=== PATIENT | female | born 1990 | race Caucasian/White ===

== ENCOUNTER 2016-07-31 04:48 | Inpatient (IN) | payer OTHER ==
[~2016-07-31] VITALS: Ht 160 cm
[~2016-07-31 04:48] MED LIST: AMBIEN5 MG PO; BACITRACIN500 U/G1 T; BUSPAR5 MG PO; DILAUDID4 MG PO; ELAVIL75 MG PO; ENOXAPARIN40 MG/0.2 SQ; HYDROMORPHONE4 MG PO; IMITREX ST6 MG/0.52 SC; IRON90 MG PO; KLONOPIN0.5 MG PO; LIDOCREAM5 GM T; PREDNISONE10 MG PO; PROTONIX20 MG PO; Phenergan25 MG PO; REGLAN; SENNA8.6 MG PO; SENNO8.6 MG PO; TPN ELECTROLYT100 ML IV; TRANSDERM0.33 MG/24 TD; VITAMIN B-650 M1 PO; VITAMIN D50000 I3 PO; XARELTO10 MG PO; [UNRECOGNIZED DRUG - CODE] PO
[2016-07-31 04:57] VITALS: BP 136/80
[2016-07-31 05:52] LABS: BASO % 0.6 % (0.0-1.0); EOS # 0.1 10*3/uL (0.0-0.4); HEMATOCRIT 25.2 % (37.0-47.0); HEMOGLOBIN 7.3 g/dl (12.0-16.0); LYMPH % 32.8 % (27.0-41.0); MEAN CELL VOLUME 70.4 fl (81.0-99.0); MEAN CORPUSCULAR HGB 20.4 pg (27.0-31.0); MEAN PLATELET VOLUME 9.6 fl (9.6-12.3); MONO # 0.8 10*3/uL (0.1-1.0); MONO % 13.4 % (3.0-9.0); NEUT # 3.2 10*3/uL (2.3-7.9); NEUT % 51.9 % (47.0-73.0); PLATELET COUNT AUTOMATED 270 10*3/uL (130-400); RED BLOOD COUNT 3.58 10*6/uL (4.10-5.10); RED CELL DISTRI WIDTH 16.6 % (0-14.5); WHITE BLOOD COUNT 6.2 10*3/uL (4.8-10.8)
[2016-07-31 05:56] LABS: ALBUMIN 3.4 gm/dl (3.1-4.5); ALKALINE PHOSPHATASE 45 U/L (45-117); BILIRUBIN, TOTAL 0.3 mg/dl (0.2-1.0); BUN 8 mg/dl (7-24); CARBON DIOXIDE 24 mmol/L (21-32); CHLORIDE 109 mmol/L (98-107); EST GLOM FILT AFRICAN AMERICAN > 60 ml/min; GLUCOSE 93 mg/dL (65-99); POTASSIUM 3.6 mmol/L (3.5-5.1); SGOT/AST 13 IU/L (3-35); SGPT/ALT 17 U/L (12-78); SODIUM 145 mmol/L (136-145); TOTAL PROTEIN 6.1 gm/dL (6.4-8.2)
[2016-07-31 07:21] VITALS: BP 139/89
[2016-07-31 08:13] LABS: BILIRUBIN NEGATIVE (NEGATIVE); BLOOD NEGATIVE (NEGATIVE); CLARITY CLEAR (CLEAR); COLOR YELLOW (YELLOW); GLUCOSE NEGATIVE (NEGATIVE); KETONE NEGATIVE (NEGATIVE); LEUKO ESTERASE NEGATIVE (NEGATIVE); NITRITE NEGATIVE (NEGATIVE); PROTEIN NEGATIVE (NEGATIVE); UROBILINOGEN 0.2 E.U./dl (0.2-1.0)
[2016-07-31 08:27] LABS: URINE AMPHETAMINES < 1000 (1000ng/ml); URINE BARBITURATES < 200 (200ng/ml); URINE COCAINE < 300 (300ng/ml)
[2016-07-31 08:31] LABS: RBC 0-2 rbc/hpf (0-2); URINE REFLEX COMMENT NO (NO)
[2016-07-31 08:51] VITALS: BP 111/87
[2016-07-31] MEDS ORDERED: NORCO 5-325 TA1 EACH PO (09:21)
[2016-08-01] MEDS ORDERED: XARELTO10 MG PO (16:49)
== END 2016-07-31 15:10 | disposition left against medical advice (07) | DRG 103 ==
LOC: ED 04:48 → EDHOLD 08:17 → 5E 08:17
PROVIDERS: Emergency Medicine
DX: G43.A0 Cyclical vomiting, in migraine, not intractable (principal); E44.0 Moderate protein-calorie malnutrition; Z93.1 Gastrostomy status; D50.9 Iron deficiency anemia, unspecified; D64.9 Anemia, unspecified; F12.10 Cannabis abuse, uncomplicated; R10.30 Lower abdominal pain, unspecified; F41.9 Anxiety disorder, unspecified; J45.909 Unspecified asthma, uncomplicated; G40.909 Epilepsy, unspecified, not intractable, without status epilepticus; F60.3 Borderline personality disorder; G89.29 Other chronic pain; G47.00 Insomnia, unspecified; F91.1 Conduct disorder, childhood-onset type; Z53.21 Procedure and treatment not carried out due to patient leaving prior to being seen by health care provider; Z82.5 Family history of asthma and other chronic lower respiratory diseases; Z82.0 Family history of epilepsy and other diseases of the nervous system; Z81.1 Family history of alcohol abuse and dependence; Z88.8 Allergy status to other drugs, medicaments and biological substances; Z79.1 Long term (current) use of non-steroidal anti-inflammatories (NSAID); Z79.899 Other long term (current) drug therapy; R00.0 Tachycardia, unspecified; Z72.0 Tobacco use

== ENCOUNTER 2016-07-31 15:32 | Inpatient (IN) | payer OTHER ==
[~2016-07-31] VITALS: Ht 160 cm; Wt 39.9 kg
--- NOTE | ~2016-07-31 | WRIGHTHP ---
[place], [place] PATIENT HISTORY AND PHYSICAL EXAM NAME: MEAGHAN FLORES UNIT #: [id number] ROOM: 409 DOCTOR: KAHTY HERNANDEZ DO BIRTHDATE: [birth year] DOS: 08/01/2016 PRIMARY CARE PHYSICIAN: Dr. Coco Yanez. SUBJECTIVE: The patient was seen and evaluated with the resident on 08/01/2016. Please see the resident's note for further details. ASSESSMENT: 1. Abdominal pain. 2. Nausea and vomiting. 3. PICC line malfunction secondary to the patient purposely trying to pull it out. 4. Microcytic anemia. 5. Hypokalemia. 6. History of eating disorder requiring the patient to obtain nutrition through chronic TPN feeds. 7. History of G-tube placement in 2010. This is currently not being used for nutrition. 8. History of cyclic vomiting syndrome. 9. History of superior mesenteric artery syndrome. 10. Chronic abdominal pain. 11. History of pulmonary embolism in 2012. This was treated with anticoagulation at that time; however, the patient states that this was stopped by her doctor and she is no longer on anticoagulation. 12. Borderline personality disorder. 13. Anxiety. 14. Depression. 15. Tobacco abuse. 16. Gastroesophageal reflux disease. 17. History of asthma. PLAN: CT of the abdomen and pelvis will be ordered. Potassium will be replaced. Continue symptomatic treatment. General Surgery will be consulted. Anemia workup will be ordered for the morning. We will try to arrange for a new PICC line to be placed. [place], [place] PATIENT HISTORY AND PHYSICAL EXAM NAME: [facility]ES [id number] UNIT #: [id number] ROOM: 409 DOCTOR: KATHY HERNANDEZ DO BIRTHDATE: [birth year] KATHY HERNANDEZ DO CM:HISPHYS:PATIENT HISTORY AND PHYSICAL EXAMINATION 1413 1510 KATHY HERNANDEZ DO 08/01/16 1509 interface
--- NOTE | ~2016-07-31 | CON ---
[place], [place] REPORT OF CONSULTATION NAME[id number] UNIT #: [id number] ROOM: 409 DOCTOR: THOR RO ED.D (RAUL) BIRTHDATE: [birth year] DOS: 08/03/2016 HISTORY OF PRESENT ILLNESS: The patient is a 25-year-old female referred by the hospitalist for psychological evaluation. At the present time, this patient is on the 4th floor at [facility]. She states she is single and has no children, although she did have a stillborn child in December 2015. She is presently on SSI because she is unable to work. Her family physician has been Dr. Yanez, but he has left the area and she is getting a new physician, although she does not know who it will be at this time. MEDICAL HISTORY: Pertinent for abdominal pain, microcytic anemia, eating disorder, cyclic vomiting, pulmonary embolism, borderline personality disorder, anxiety, depression, GERD. MEDICATIONS: Include Geodon, omeprazole, Phenergan, zolpidem, BuSpar, Toradol, morphine, Vistaril, Lovenox, Elavil, Pepcid and she is on TPN. She denies any substance abuse issues. This patient was awake, alert and oriented in all three spheres. She was extremely agitated throughout the interview. She is quite frustrated about her medical care with her primary care physician. She is frustrated because she has a PICC line and apparently she tried to take the PICC line out, but is going to be reinserted tomorrow in Surgery. She was quite agitated and a code violent was called because the patient was so agitated. Jerrell Mera, psychiatric nurse practitioner did see the patient and prescribed Vistaril to help with agitation along with Geodon. She does have a counselor assigned to her in [place], [place], where she presently resides. She has been to multiple physicians and gets medications from multiple doctors according to the hospitalist and residents. I did suggest that she follow up with outpatient counseling and she angrily agreed that that was probably necessary. Again, she is extremely frustrated because of her medical problems. She is not suicidal and denies any hallucinations or delusional thoughts. DIAGNOSES: 1. Major depressive disorder. 2. Borderline personality disorder. RECOMMENDATIONS: The patient should follow up with counseling in [place], [place] where she has an appointment. Thank you very much for this consult. [place], [place] REPORT OF CONSULTATION NAME: MEAGHAN FLORES UNIT #: [id number] ROOM: 409 DOCTOR: THOR RO ED.D (RAUL) BIRTHDATE: [birth year] THOR RO ED.D CM:CONSTR:REPORT OF CONSULTATION 1634 08/04/16 0050 interface
--- NOTE | ~2016-07-31 | CON ---
[place], [place] REPORT OF CONSULTATION NAME: [facility]AN FLORES [facility] [id number] UNIT #: [id number] ROOM: 409 DOCTOR: LEROY BOYKIN BIRTHDATE: [birth year] DOS: 08/01/2016 HISTORY OF PRESENT ILLNESS: This is a 25-year-old female admitted for vomiting, dehydration, malfunctioning PICC line. Vague medical history very irritable, angry, disrespectful, inappropriate, foul language, attempted to pull her PICC line and leave AMA, but then came back complaining of more vomiting, received Geodon and Dilaudid. Very disrespectful to nursing, myself, but little more cooperative with the MD. The patient states that yes she is depressed, yes she is anxious that I need to shut up and give her, her meds. PAST MEDICAL HISTORY: Includes anxiety, asthma, borderline personality disorder, chronic abdominal pain, chronic back pain, cyclic vomiting syndrome, drug-seeking behavior, seizure disorder, pulmonary embolism, insomnia, marijuana abuse, microcytic anemia, superior mesenteric artery syndrome with Whipple, poor p.o. intake. MENTAL STATUS: She is alert and oriented to person, place, approximate time. Mood very irritable. Affect inappropriate, angry, disrespectful. No overt signs of auditory or visual hallucinations, delusions, paranoia, jaye or hypomania. Again, she admits depression and anxiety. She states that she takes Ambien. Her drug reconciliation pane does not show that she has filled it via pharmacy, just reported last time she filled her amitriptyline, her Elavil was in January with possible refills and her BuSpar. She was furious when she found out she had not received them yet, I told her had no problem starting it; however, the doses that she said that she was taking were double or triple what her prescription was last filled, so I am going to basis on what was last filled, not on her reported dosages. She is fine if being left alone, she isolates in her room, she would not ambulate in the [place], but she will call the nurse into the room to demand things. She is again very disrespectful. I cannot get a decent assessment out of her because she began be riding me using harsh words, etc. PLAN: I am going to go ahead and start her Elavil back at 75 mg at bedtime. Again, she reported that it was 150, but per pharmacy recs, last prescription that was filled in January was 75. I will start her BuSpar back at 7.5 mg b.i.d. She reported triple this dosage and I do not think higher dose would be an issue but I do not know when the last time she received it, so I want to start out on a safe dose so I did a 7.5 b.i.d. I am not starting the Ambien and not a fan of it. She also threatened to call family members and friends and have them bring in medications for her if we are going to give her the medication she wanted. I did pass this on to the MD and the nurses to be cautious about this. We do have Restoril available for her for sleep at bedtime but she has received Dilaudid and morphine here. I am not going to prescribe any benzos whatsoever and I do not want Ambien with those kind of narcotics on board. Attempts to redirect were unsuccessful to the point where she can get her way after verbally abusing me that she followed me up to the hallway and then at my desk and tried to come at me again, the conversation was stopped. I did discuss with the MD, I think she has got some kind of explosive personality disorder or just personality disorder. I do not think that she has bipolar or schizophrenic. It may just be that she is used to being sick and coddled when [place], [place] REPORT OF CONSULTATION NAME: FLORESJENELLEJesus Chambers UNIT #: [id number] ROOM: 409 DOCTOR: LEROY BOYKIN BIRTHDATE: [birth year] she is not feeling well. We do not have any kind of direct screen, I am worried about that issue going through some type of withdrawals, but now that she has received morphine and Dilaudid, there is no point in getting the drug screen. Again, I will start the Elavil at 75. I will start the BuSpar. She has Restoril p.r.n. for sleep. We need to be cautious with people visiting and as far as bringing the medications. We will continue to try to engage in individual and novoa milieu therapy. She is being very vague. I could find out if she follows with the therapist, psychiatrist, who prescribes her medications, etc. She only winked, discussed her medical history whatsoever basically just said "I need to be quiet" and give her the medication she wanted. ESME BOYKIN CNP CM:CONSTR:REPORT OF CONSULTATION 0955 08/02/16 0555 interface
[~2016-07-31 15:32] MED LIST changes: +NORCO 5-325 TA1 EACH PO
[2016-07-31 16:50] LABS: BASO % 0.8 % (0.0-1.0); EOS # 0.1 10*3/uL (0.0-0.4); EOS % 1.9 % (1.0-4.0); HEMATOCRIT 26.1 % (37.0-47.0); HEMOGLOBIN 7.5 g/dl (12.0-16.0); LYMPH # 2.3 10*3/uL (1.3-4.4); LYMPH % 44.3 % (27.0-41.0); MEAN CORPUSCULAR HGB 20.1 pg (27.0-31.0); MEAN CORPUSCULAR HGB CONC 28.7 g/dl (33.0-37.0); MEAN PLATELET VOLUME 9.4 fl (9.6-12.3); MONO # 0.6 10*3/uL (0.1-1.0); MONO % 10.9 % (3.0-9.0); NEUT # 2.2 10*3/uL (2.3-7.9); NEUT % 41.9 % (47.0-73.0); PLATELET COUNT AUTOMATED 281 10*3/uL (130-400); RED BLOOD COUNT 3.73 10*6/uL (4.10-5.10); RED CELL DISTRI WIDTH 16.8 % (0-14.5); WHITE BLOOD COUNT 5.2 10*3/uL (4.8-10.8)
[2016-07-31 20:49] LABS: ALBUMIN 3.3 gm/dl (3.1-4.5); ALKALINE PHOSPHATASE 43 U/L (45-117); BILIRUBIN, TOTAL 0.3 mg/dl (0.2-1.0); BUN 5 mg/dl (7-24); CARBON DIOXIDE 24 mmol/L (21-32); CHLORIDE 111 mmol/L (98-107); EST GLOM FILT AFRICAN AMERICAN > 60 ml/min; GLUCOSE 87 mg/dL (65-99); POTASSIUM 3.6 mmol/L (3.5-5.1); SGOT/AST 12 IU/L (3-35); SGPT/ALT 17 U/L (12-78); SODIUM 146 mmol/L (136-145); TOTAL PROTEIN 5.8 gm/dL (6.4-8.2)
[2016-07-31 23:14] VITALS: BP 110/61
[2016-08-01 00:08] VITALS: BP 118/77
[2016-08-01 01:15] VITALS: BP 120/65
[2016-08-01 06:24] LABS: BASO # 0.1 10*3/uL (0.0-0.1); EOS # 0.2 10*3/uL (0.0-0.4); EOS % 3.7 % (1.0-4.0); HEMATOCRIT 26.2 % (37.0-47.0); HEMOGLOBIN 7.5 g/dl (12.0-16.0); LYMPH # 2.3 10*3/uL (1.3-4.4); LYMPH % 46.3 % (27.0-41.0); MEAN CELL VOLUME 69.5 fl (81.0-99.0); MEAN CORPUSCULAR HGB 19.9 pg (27.0-31.0); MEAN CORPUSCULAR HGB CONC 28.6 g/dl (33.0-37.0); MEAN PLATELET VOLUME 9.8 fl (9.6-12.3); MONO # 0.6 10*3/uL (0.1-1.0); MONO % 11.8 % (3.0-9.0); NEUT # 1.8 10*3/uL (2.3-7.9); PLATELET COUNT AUTOMATED 279 10*3/uL (130-400); RED BLOOD COUNT 3.77 10*6/uL (4.10-5.10); RED CELL DISTRI WIDTH 16.9 % (0-14.5); WHITE BLOOD COUNT 4.9 10*3/uL (4.8-10.8)
[2016-08-01 06:54] LABS: ALBUMIN 3.6 gm/dl (3.1-4.5); ALKALINE PHOSPHATASE 47 U/L (45-117); BILIRUBIN, TOTAL 0.4 mg/dl (0.2-1.0); BUN 4 mg/dl (7-24); CARBON DIOXIDE 27 mmol/L (21-32); CHLORIDE 106 mmol/L (98-107); EST GLOM FILT AFRICAN AMERICAN > 60 ml/min; GLUCOSE 81 mg/dL (65-99); MAGNESIUM 1.9 mg/dL (1.5-2.1); PHOSPHOROUS 3.3 mg/dL (2.5-4.9); POTASSIUM 3.2 mmol/L (3.5-5.1); SGOT/AST 14 IU/L (3-35); SGPT/ALT 17 U/L (12-78); SODIUM 141 mmol/L (136-145); TOTAL PROTEIN 6.5 gm/dL (6.4-8.2)
[2016-08-01 08:00] VITALS: BP 131/88; BP 131/98
[2016-08-01 16:00] VITALS: BP 130/73
[2016-08-01] MEDS ORDERED: XARELTO10 MG PO (16:49)
[2016-08-01 20:00] VITALS: BP 126/70
[2016-08-02] VITALS: BP 127/76
[2016-08-02 06:11] LABS: BASO % 0.7 % (0.0-1.0); EOS # 0.2 10*3/uL (0.0-0.4); EOS % 3.9 % (1.0-4.0); HEMATOCRIT 23.8 % (37.0-47.0); HEMOGLOBIN 6.8 g/dl (12.0-16.0); LYMPH # 1.7 10*3/uL (1.3-4.4); LYMPH % 41.9 % (27.0-41.0); MEAN CELL VOLUME 70.8 fl (81.0-99.0); MEAN CORPUSCULAR HGB 20.2 pg (27.0-31.0); MEAN CORPUSCULAR HGB CONC 28.6 g/dl (33.0-37.0); MEAN PLATELET VOLUME 9.6 fl (9.6-12.3); MONO # 0.4 10*3/uL (0.1-1.0); MONO % 10.3 % (3.0-9.0); NEUT # 1.8 10*3/uL (2.3-7.9); NEUT % 43.2 % (47.0-73.0); PLATELET COUNT AUTOMATED 262 10*3/uL (130-400); RED BLOOD COUNT 3.36 10*6/uL (4.10-5.10); RED CELL DISTRI WIDTH 16.5 % (0-14.5); WHITE BLOOD COUNT 4.1 10*3/uL (4.8-10.8)
[2016-08-02 06:46] LABS: ALBUMIN 3.2 gm/dl (3.1-4.5); ALKALINE PHOSPHATASE 40 U/L (45-117); BILIRUBIN, TOTAL 0.3 mg/dl (0.2-1.0); BUN 4 mg/dl (7-24); CARBON DIOXIDE 27 mmol/L (21-32); CHLORIDE 111 mmol/L (98-107); EST GLOM FILT AFRICAN AMERICAN > 60 ml/min; FREE T4 1.17 ng/dl (0.76-1.46); GLUCOSE 108 mg/dL (65-99); IRON 8 ug/dL (50-170); MAGNESIUM 1.7 mg/dL (1.5-2.1); PHOSPHOROUS 3.8 mg/dL (2.5-4.9); POTASSIUM 3.4 mmol/L (3.5-5.1); SGOT/AST 9 IU/L (3-35); SGPT/ALT 15 U/L (12-78); SODIUM 145 mmol/L (136-145); TOTAL PROTEIN 5.7 gm/dL (6.4-8.2)
[2016-08-02 06:54] LABS: C-REACTIVE PROTEIN < 0.29 MG/DL (0-0.3)
[2016-08-02 07:53] LABS: FERRITIN 3.8 ng/mL (10.0-291.0); FOLIC ACID 23.08 ng/mL (>5.38)
[2016-08-02 08:00] VITALS: BP 130/74
[2016-08-02 12:00] VITALS: BP 124/64
[2016-08-02] MEDS ORDERED: VITAMIN D1000 IU PO (12:18)
[2016-08-02] MEDS ORDERED: B-6200 MG PO (12:18)
[2016-08-02 16:00] VITALS: BP 130/84
[2016-08-02 20:00] VITALS: BP 130/81
[2016-08-03] VITALS: BP 129/82
[2016-08-03 06:29] LABS: BASO % 0.5 % (0.0-1.0); EOS # 0.2 10*3/uL (0.0-0.4); EOS % 3.7 % (1.0-4.0); HEMATOCRIT 26.7 % (37.0-47.0); HEMOGLOBIN 7.9 g/dl (12.0-16.0); LYMPH # 1.6 10*3/uL (1.3-4.4); LYMPH % 38.2 % (27.0-41.0); MEAN CELL VOLUME 72.4 fl (81.0-99.0); MEAN CORPUSCULAR HGB 21.4 pg (27.0-31.0); MEAN CORPUSCULAR HGB CONC 29.6 g/dl (33.0-37.0); MEAN PLATELET VOLUME 9.9 fl (9.6-12.3); MONO # 0.5 10*3/uL (0.1-1.0); MONO % 12.3 % (3.0-9.0); NEUT # 1.8 10*3/uL (2.3-7.9); NEUT % 45.1 % (47.0-73.0); PLATELET COUNT AUTOMATED 254 10*3/uL (130-400); RED BLOOD COUNT 3.69 10*6/uL (4.10-5.10); RED CELL DISTRI WIDTH 17.2 % (0-14.5); WHITE BLOOD COUNT 4.1 10*3/uL (4.8-10.8)
[2016-08-03 06:53] LABS: BUN 3 mg/dl (7-24); CARBON DIOXIDE 28 mmol/L (21-32); CHLORIDE 108 mmol/L (98-107); EST GLOM FILT AFRICAN AMERICAN > 60 ml/min; GLUCOSE 80 mg/dL (65-99); POTASSIUM 3.2 mmol/L (3.5-5.1); SODIUM 145 mmol/L (136-145)
[2016-08-03 07:57] VITALS: BP 126/86
[2016-08-03 16:00] VITALS: BP 122/70
[2016-08-04] VITALS: BP 125/80
[2016-08-04 07:02] LABS: BASO % 0.4 % (0.0-1.0); EOS # 0.2 10*3/uL (0.0-0.4); EOS % 3.2 % (1.0-4.0); HEMATOCRIT 30.6 % (37.0-47.0); HEMOGLOBIN 9.1 g/dl (12.0-16.0); LYMPH # 1.9 10*3/uL (1.3-4.4); LYMPH % 40.3 % (27.0-41.0); MEAN CELL VOLUME 73.6 fl (81.0-99.0); MEAN CORPUSCULAR HGB 21.9 pg (27.0-31.0); MEAN CORPUSCULAR HGB CONC 29.7 g/dl (33.0-37.0); MEAN PLATELET VOLUME 9.5 fl (9.6-12.3); MONO # 0.5 10*3/uL (0.1-1.0); MONO % 10.9 % (3.0-9.0); NEUT # 2.1 10*3/uL (2.3-7.9); NEUT % 45.2 % (47.0-73.0); PLATELET COUNT AUTOMATED 293 10*3/uL (130-400); RED BLOOD COUNT 4.16 10*6/uL (4.10-5.10); RED CELL DISTRI WIDTH 18.1 % (0-14.5); WHITE BLOOD COUNT 4.7 10*3/uL (4.8-10.8)
[2016-08-04 07:30] LABS: ALBUMIN 3.3 gm/dl (3.1-4.5); ALKALINE PHOSPHATASE 57 U/L (45-117); BILIRUBIN, TOTAL 0.3 mg/dl (0.2-1.0); BUN 4 mg/dl (7-24); CARBON DIOXIDE 27 mmol/L (21-32); CHLORIDE 107 mmol/L (98-107); GLUCOSE 108 mg/dL (65-99); MAGNESIUM 1.9 mg/dL (1.5-2.1); POTASSIUM 3.8 mmol/L (3.5-5.1); SGOT/AST 17 IU/L (3-35); SGPT/ALT 21 U/L (12-78); SODIUM 143 mmol/L (136-145); TOTAL PROTEIN 5.9 gm/dL (6.4-8.2)
[2016-08-04 07:33] LABS: EST GLOM FILT AFRICAN AMERICAN > 60 ml/min; PHOSPHOROUS 4.5 mg/dL (2.5-4.9)
[2016-08-04 08:00] VITALS: BP 90/50
[2016-08-04 16:00] VITALS: BP 120/79
[2016-08-05] VITALS: BP 124/82
[2016-08-05 08:00] VITALS: BP 122/78
[2016-08-05] MEDS ORDERED: HYDROXYZINE PAM25 M1 PO (09:11)
[2016-08-05 16:00] VITALS: BP 133/84
== END 2016-08-05 18:42 | disposition home or self-care (01) | DRG 315 ==
LOC: ED 15:32 → 4E 23:46 → EDHOLD 23:46 → 4E 08-01 00:26
PROVIDERS: Emergency Medicine; Hospitalist; Student in an Organized Health Care Education/Training Program
PROC: 02HV33Z Insertion of Infusion Device into Superior Vena Cava, Percutaneous Approach (ICD-10-PCS; 2016-07-31)
PROC: 30233N1 Transfusion of Nonautologous Red Blood Cells into Peripheral Vein, Percutaneous Approach (ICD-10-PCS; principal; 2016-08-02)
DX: T82.9XXA Unspecified complication of cardiac and vascular prosthetic device, implant and graft, initial encounter (principal); E44.0 Moderate protein-calorie malnutrition; K55.1 Chronic vascular disorders of intestine; E87.0 Hyperosmolality and hypernatremia; E87.8 Other disorders of electrolyte and fluid balance, not elsewhere classified; F17.200 Nicotine dependence, unspecified, uncomplicated; D50.9 Iron deficiency anemia, unspecified; Z68.1 Body mass index [BMI] 19.9 or less, adult; E86.0 Dehydration; F41.9 Anxiety disorder, unspecified; G43.A0 Cyclical vomiting, in migraine, not intractable; J45.909 Unspecified asthma, uncomplicated; G47.00 Insomnia, unspecified; M54.5 Low back pain; G40.909 Epilepsy, unspecified, not intractable, without status epilepticus; G89.29 Other chronic pain; Y83.8 Other surgical procedures as the cause of abnormal reaction of the patient, or of later complication, without mention of misadventure at the time of the procedure; F12.10 Cannabis abuse, uncomplicated; E87.6 Hypokalemia; F60.3 Borderline personality disorder; K21.9 Gastro-esophageal reflux disease without esophagitis; F32.9 Major depressive disorder, single episode, unspecified; Z88.8 Allergy status to other drugs, medicaments and biological substances; Z79.899 Other long term (current) drug therapy; Z79.1 Long term (current) use of non-steroidal anti-inflammatories (NSAID); Y92.89 Other specified places as the place of occurrence of the external cause; Z82.5 Family history of asthma and other chronic lower respiratory diseases; Z86.711 Personal history of pulmonary embolism; Z82.0 Family history of epilepsy and other diseases of the nervous system; Z93.1 Gastrostomy status; Z81.1 Family history of alcohol abuse and dependence; Z93.4 Other artificial openings of gastrointestinal tract status

== ENCOUNTER 2016-08-13 09:57 | Emergency (ER) | payer OTHER ==
[~2016-08-13] VITALS: Ht 160 cm; Wt 46.3 kg
[~2016-08-13 09:57] MED LIST changes: +B-6200 MG PO; +HYDROXYZINE PAM25 M1 PO; +VITAMIN D1000 IU PO
[2016-08-13] MEDS ORDERED: PHARMASSURE VI100 MG PO (10:09)
[2016-08-13] MEDS ORDERED: D-1000 185 MG-11 TAB PO (10:10)
[2016-08-13] MEDS ORDERED: MELATONIN3 MG PO (10:10)
[2016-08-13] MEDS ORDERED: COL-RITE100 M1 PO (10:10)
[2016-08-13] MEDS ORDERED: AMITRIPTYLINE H75 MG PO (10:11)
[2016-08-13] MEDS ORDERED: CALCIUM 500 +1 EAC1 PO (10:12)
[2016-08-13] MEDS ORDERED: BUSPIRONE HCL7.5 MG PO (10:12)
[2016-08-13] MEDS ORDERED: CO Q10100 MG PO (10:13)
[2016-08-13] MEDS ORDERED: GABAPENTIN100 M2 PO (10:14)
[2016-08-13] MEDS ORDERED: IRON325 M1 PO (10:14)
[2016-08-13] MEDS ORDERED: PROTONIX20 MG PO (10:14)
[2016-08-13] MEDS ORDERED: SENNA CONCENTR8.6 M1 PO (10:16)
[2016-08-13] MEDS ORDERED: XARELTO10 MG PO (10:16)
[2016-08-13] MEDS ORDERED: IMITREX ST6 MG/0.52 SC (10:17)
[2016-08-13] MEDS ORDERED: AMBIEN5 MG PO (10:18)
[2016-08-13 11:41] LABS: BASO # 0.1 10*3/uL (0.0-0.1); BASO % 0.9 % (0.0-1.0); EOS # 0.1 10*3/uL (0.0-0.4); EOS % 1.5 % (1.0-4.0); HEMATOCRIT 35.9 % (37.0-47.0); HEMOGLOBIN 10.6 g/dl (12.0-16.0); LYMPH # 1.4 10*3/uL (1.3-4.4); LYMPH % 26.1 % (27.0-41.0); MEAN CELL VOLUME 72.1 fl (81.0-99.0); MEAN CORPUSCULAR HGB 21.3 pg (27.0-31.0); MEAN CORPUSCULAR HGB CONC 29.5 g/dl (33.0-37.0); MEAN PLATELET VOLUME 10.5 fl (9.6-12.3); MONO # 0.6 10*3/uL (0.1-1.0); MONO % 11.3 % (3.0-9.0); NEUT # 3.3 10*3/uL (2.3-7.9); PLATELET COUNT AUTOMATED 208 10*3/uL (130-400); RED BLOOD COUNT 4.98 10*6/uL (4.10-5.10); RED CELL DISTRI WIDTH 18.8 % (0-14.5); WHITE BLOOD COUNT 5.5 10*3/uL (4.8-10.8)
[2016-08-13 11:57] LABS: ALBUMIN 3.8 gm/dl (3.1-4.5); ALKALINE PHOSPHATASE 55 U/L (45-117); BILIRUBIN, TOTAL 0.4 mg/dl (0.2-1.0); BUN 20 mg/dl (7-24); CARBON DIOXIDE 24 mmol/L (21-32); CHLORIDE 106 mmol/L (98-107); EST GLOM FILT AFRICAN AMERICAN > 60 ml/min; GLUCOSE 92 mg/dL (65-99); POTASSIUM 3.9 mmol/L (3.5-5.1); SGOT/AST 16 IU/L (3-35); SGPT/ALT 27 U/L (12-78); SODIUM 138 mmol/L (136-145); TOTAL PROTEIN 7.4 gm/dL (6.4-8.2)
== END 2016-08-13 12:51 | disposition home or self-care (01) ==
LOC: ED 09:57
PROVIDERS: Nurse Practitioner Family
DX: R11.2 Nausea with vomiting, unspecified (principal); F17.200 Nicotine dependence, unspecified, uncomplicated; Z79.899 Other long term (current) drug therapy; Z88.6 Allergy status to analgesic agent; Z88.8 Allergy status to other drugs, medicaments and biological substances

== ENCOUNTER 2016-09-22 18:58 | Emergency (ER) | payer OTHER ==
[~2016-09-22] VITALS: Ht 162.5 cm; Wt 54.4 kg
[~2016-09-22 18:58] MED LIST changes: +AMITRIPTYLINE H75 MG PO; +BUSPIRONE HCL7.5 MG PO; +CALCIUM 500 +1 EAC1 PO; +CO Q10100 MG PO; +COL-RITE100 M1 PO; +D-1000 185 MG-11 TAB PO; +GABAPENTIN100 M2 PO; +IRON325 M1 PO; +MELATONIN3 MG PO; +PHARMASSURE VI100 MG PO; +SENNA CONCENTR8.6 M1 PO
[2016-09-22 19:52] LABS: BASO % 0.1 % (0.0-1.0); EOS % 0.4 % (1.0-4.0); HEMATOCRIT 30.2 % (37.0-47.0); HEMOGLOBIN 9.3 g/dl (12.0-16.0); LYMPH # 1.3 10*3/uL (1.3-4.4); LYMPH % 17.3 % (27.0-41.0); MEAN CORPUSCULAR HGB 24.9 pg (27.0-31.0); MEAN CORPUSCULAR HGB CONC 30.8 g/dl (33.0-37.0); MEAN PLATELET VOLUME 10.7 fl (9.6-12.3); MONO # 1.2 10*3/uL (0.1-1.0); MONO % 16.4 % (3.0-9.0); NEUT # 4.7 10*3/uL (2.3-7.9); NEUT % 65.5 % (47.0-73.0); PLATELET COUNT AUTOMATED 179 10*3/uL (130-400); RED BLOOD COUNT 3.73 10*6/uL (4.10-5.10); RED CELL DISTRI WIDTH 23.9 % (0-14.5); WHITE BLOOD COUNT 7.2 10*3/uL (4.8-10.8)
[2016-09-22 20:06] LABS: ALBUMIN 2.9 gm/dl (3.1-4.5); ALKALINE PHOSPHATASE 49 U/L (45-117); BILIRUBIN, TOTAL 0.4 mg/dl (0.2-1.0); BUN 12 mg/dl (7-24); CARBON DIOXIDE 24 mmol/L (21-32); CHLORIDE 109 mmol/L (98-107); EST GLOM FILT AFRICAN AMERICAN > 60 ml/min; GLUCOSE 102 mg/dL (65-99); POTASSIUM 3.3 mmol/L (3.5-5.1); SGOT/AST 22 IU/L (3-35); SGPT/ALT 69 U/L (12-78); SODIUM 141 mmol/L (136-145); TOTAL PROTEIN 5.8 gm/dL (6.4-8.2)
[2016-09-22 21:10] LABS: BILIRUBIN 1+ (NEGATIVE); BLOOD TRACE-INTACT (NEGATIVE); CLARITY CLEAR (CLEAR); COLOR YELLOW (YELLOW); GLUCOSE TRACE (NEGATIVE); KETONE TRACE (NEGATIVE); LEUKO ESTERASE TRACE (NEGATIVE); NITRITE NEGATIVE (NEGATIVE); PROTEIN 2+ (NEGATIVE); SPECIFIC GRAVITY 1.015 (1.005-1.030); UROBILINOGEN >= 8.0 E.U./dl (0.2-1.0)
[2016-09-22 21:18] LABS: BACTERIA 1+; URINE REFLEX COMMENT YES (NO)
[2016-09-22 21:19] LABS: MUCOUS 3+
[2016-09-22 21:20] LABS: WBC 16-20 wbc/hpf (0-5)
== END 2016-09-22 22:02 | disposition home or self-care (01) ==
LOC: ED 18:58
PROVIDERS: Nurse Practitioner Family
DX: R11.2 Nausea with vomiting, unspecified (principal); R10.30 Lower abdominal pain, unspecified; Z88.8 Allergy status to other drugs, medicaments and biological substances; Z79.899 Other long term (current) drug therapy; Z87.891 Personal history of nicotine dependence

== ENCOUNTER 2016-10-03 20:44 | Emergency (ER) | payer OTHER ==
[~2016-10-03] VITALS: Ht 157.4 cm; Wt 45.4 kg
== END 2016-10-03 21:12 | disposition left against medical advice (07) ==
LOC: ED 20:44
DX: R11.2 Nausea with vomiting, unspecified (principal); F17.200 Nicotine dependence, unspecified, uncomplicated; Z88.8 Allergy status to other drugs, medicaments and biological substances; Z79.899 Other long term (current) drug therapy

== ENCOUNTER 2016-10-09 06:51 | Emergency (ER) | payer OTHER ==
[~2016-10-09] VITALS: Ht 157.4 cm; Wt 45.4 kg
[2016-10-09 07:43] LABS: BASO % 0.1 % (0.0-1.0); EOS % 0.3 % (1.0-4.0); HEMATOCRIT 28.7 % (37.0-47.0); HEMOGLOBIN 8.9 g/dl (12.0-16.0); LYMPH # 1.3 10*3/uL (1.3-4.4); LYMPH % 9.5 % (27.0-41.0); MEAN CORPUSCULAR HGB 25.4 pg (27.0-31.0); MEAN PLATELET VOLUME 10.5 fl (9.6-12.3); MONO # 0.9 10*3/uL (0.1-1.0); MONO % 6.9 % (3.0-9.0); NEUT # 11.1 10*3/uL (2.3-7.9); NEUT % 82.8 % (47.0-73.0); PLATELET COUNT AUTOMATED 176 10*3/uL (130-400); RED CELL DISTRI WIDTH 20.9 % (0-14.5); WHITE BLOOD COUNT 13.5 10*3/uL (4.8-10.8)
[2016-10-09 07:56] LABS: ALBUMIN 2.6 gm/dl (3.1-4.5); ALKALINE PHOSPHATASE 48 U/L (45-117); BUN 9 mg/dl (7-24); CHLORIDE 110 mmol/L (98-107); CREATININE 0.53 mg/dL (0.55-1.02); LIPASE 103 U/L (73-393); POTASSIUM 3.4 mmol/L (3.5-5.1); SGOT/AST 14 IU/L (3-35); SGPT/ALT 11 U/L (12-78); SODIUM 139 mmol/L (136-145); TOTAL PROTEIN 5.6 gm/dL (6.4-8.2)
[2016-10-09 08:34] LABS: BILIRUBIN NEGATIVE (NEGATIVE); BLOOD NEGATIVE (NEGATIVE); CLARITY SL CLOUDY (CLEAR); COLOR YELLOW (YELLOW); GLUCOSE NEGATIVE (NEGATIVE); KETONE NEGATIVE (NEGATIVE); LEUKO ESTERASE NEGATIVE (NEGATIVE); NITRITE NEGATIVE (NEGATIVE); PH 5.5 (5.0-9.0); SPECIFIC GRAVITY 1.015 (1.005-1.030); UROBILINOGEN 0.2 E.U./dl (0.2-1.0)
[2016-10-09 08:41] LABS: BACTERIA 1+; EPITHELIAL CELLS 15-20; MUCOUS 2+
== END 2016-10-09 09:50 | disposition left against medical advice (07) ==
LOC: ED 06:51
PROVIDERS: Family Medicine Adult Medicine
DX: R10.84 Generalized abdominal pain (principal); R11.2 Nausea with vomiting, unspecified; M54.5 Low back pain; J45.909 Unspecified asthma, uncomplicated; F12.10 Cannabis abuse, uncomplicated; F17.200 Nicotine dependence, unspecified, uncomplicated; Z88.8 Allergy status to other drugs, medicaments and biological substances; Z79.899 Other long term (current) drug therapy

== ENCOUNTER 2016-10-14 15:36 | Emergency (ER) | payer OTHER ==
[~2016-10-14] VITALS: Ht 157.4 cm; Wt 45.4 kg
== END 2016-10-14 19:25 | disposition left against medical advice (07) ==
LOC: ED 15:36
DX: G89.29 Other chronic pain (principal); M54.9 Dorsalgia, unspecified; R11.2 Nausea with vomiting, unspecified; R10.9 Unspecified abdominal pain; Z88.8 Allergy status to other drugs, medicaments and biological substances; Z79.899 Other long term (current) drug therapy; Z87.891 Personal history of nicotine dependence

== ENCOUNTER 2016-10-27 19:18 | Emergency (ER) | payer OTHER ==
[~2016-10-27] VITALS: Ht 157.4 cm; Wt 45.4 kg
[2016-10-27 20:08] LABS: BASO # 0.1 10*3/uL (0.0-0.1); BASO % 0.7 % (0.0-1.0); EOS # 0.2 10*3/uL (0.0-0.4); EOS % 2.5 % (1.0-4.0); HEMATOCRIT 32.1 % (37.0-47.0); HEMOGLOBIN 10.3 g/dl (12.0-16.0); LYMPH # 2.1 10*3/uL (1.3-4.4); LYMPH % 30.3 % (27.0-41.0); MEAN CELL VOLUME 81.3 fl (81.0-99.0); MEAN CORPUSCULAR HGB 26.1 pg (27.0-31.0); MEAN CORPUSCULAR HGB CONC 32.1 g/dl (33.0-37.0); MEAN PLATELET VOLUME 10.5 fl (9.6-12.3); MONO # 0.4 10*3/uL (0.1-1.0); MONO % 5.3 % (3.0-9.0); NEUT # 4.2 10*3/uL (2.3-7.9); NEUT % 60.9 % (47.0-73.0); PLATELET COUNT AUTOMATED 266 10*3/uL (130-400); RED BLOOD COUNT 3.95 10*6/uL (4.10-5.10); RED CELL DISTRI WIDTH 17.3 % (0-14.5); WHITE BLOOD COUNT 6.9 10*3/uL (4.8-10.8)
[2016-10-27 20:23] LABS: ALBUMIN 3.5 gm/dl (3.1-4.5); ALKALINE PHOSPHATASE 45 U/L (45-117); BUN 9 mg/dl (7-24); CHLORIDE 108 mmol/L (98-107); POTASSIUM 3.3 mmol/L (3.5-5.1); SGOT/AST 8 IU/L (3-35); SGPT/ALT 12 U/L (12-78); SODIUM 142 mmol/L (136-145); TOTAL PROTEIN 6.5 gm/dL (6.4-8.2)
== END 2016-10-27 22:03 | disposition left against medical advice (07) ==
LOC: ED 19:18
PROVIDERS: Nurse Practitioner Family
DX: R11.2 Nausea with vomiting, unspecified (principal); Z79.899 Other long term (current) drug therapy; Z88.8 Allergy status to other drugs, medicaments and biological substances; Z88.6 Allergy status to analgesic agent

== ENCOUNTER 2017-03-06 15:21 | Emergency (ER) | payer OTHER ==
[~2017-03-06] VITALS: Wt 46.7 kg
[2017-03-06 16:11] LABS: BASO # 0.1 10*3/uL (0.0-0.1); BASO % 0.7 % (0.0-1.0); EOS # 0.1 10*3/uL (0.0-0.4); EOS % 1.4 % (1.0-4.0); HEMATOCRIT 35.4 % (37.0-47.0); HEMOGLOBIN 11.3 g/dl (12.0-16.0); LYMPH # 2.2 10*3/uL (1.3-4.4); MEAN CELL VOLUME 74.4 fl (81.0-99.0); MEAN CORPUSCULAR HGB 23.7 pg (27.0-31.0); MEAN CORPUSCULAR HGB CONC 31.9 g/dl (33.0-37.0); MEAN PLATELET VOLUME 10.5 fl (9.6-12.3); MONO # 0.6 10*3/uL (0.1-1.0); MONO % 8.9 % (3.0-9.0); NEUT # 4.1 10*3/uL (2.3-7.9); NEUT % 57.7 % (47.0-73.0); PLATELET COUNT AUTOMATED 269 10*3/uL (130-400); RED BLOOD COUNT 4.76 10*6/uL (4.10-5.10); RED CELL DISTRI WIDTH 16.3 % (0-14.5)
[2017-03-06 16:27] LABS: ALKALINE PHOSPHATASE 54 U/L (45-117); BUN 12 mg/dl (7-24); CHLORIDE 109 mmol/L (98-107); CREATININE 0.68 mg/dL (0.55-1.02); LIPASE 170 U/L (73-393); POTASSIUM 3.6 mmol/L (3.5-5.1); SGOT/AST 18 IU/L (3-35); SGPT/ALT 17 U/L (12-78); SODIUM 143 mmol/L (136-145); TOTAL PROTEIN 7.4 gm/dL (6.4-8.2)
[2017-03-06 17:26] LABS: BILIRUBIN NEGATIVE (NEGATIVE); BLOOD NEGATIVE (NEGATIVE); CLARITY SL CLOUDY (CLEAR); COLOR YELLOW (YELLOW); GLUCOSE NEGATIVE (NEGATIVE); KETONE TRACE (NEGATIVE); LEUKO ESTERASE NEGATIVE (NEGATIVE); NITRITE NEGATIVE (NEGATIVE); SPECIFIC GRAVITY >= 1.030 (1.005-1.030); UROBILINOGEN 0.2 E.U./dl (0.2-1.0)
[2017-03-06 17:48] LABS: BACTERIA 1+; MUCOUS TRACE; RBC 0-2 rbc/hpf (0-2)
[2017-03-06] MEDS ORDERED: PHENERGAN6.25 MG/1 PO (17:52)
== END 2017-03-06 18:25 | disposition home or self-care (01) ==
LOC: ED 15:21
PROVIDERS: Nurse Practitioner Family
DX: R11.2 Nausea with vomiting, unspecified (principal); Z79.899 Other long term (current) drug therapy; Z88.8 Allergy status to other drugs, medicaments and biological substances; Z88.6 Allergy status to analgesic agent; Z88.1 Allergy status to other antibiotic agents

== ENCOUNTER 2017-03-12 17:39 | Emergency (ER) | payer OTHER ==
[~2017-03-12] VITALS: Ht 160 cm; Wt 464.9 kg
[~2017-03-12 17:39] MED LIST changes: +PHENERGAN6.25 MG/1 PO
== END 2017-03-12 18:21 | disposition left against medical advice (07) ==
LOC: ED 17:39
DX: R10.9 Unspecified abdominal pain (principal); R30.0 Dysuria; R11.2 Nausea with vomiting, unspecified; F17.200 Nicotine dependence, unspecified, uncomplicated; Z79.899 Other long term (current) drug therapy; Z88.8 Allergy status to other drugs, medicaments and biological substances; Z88.6 Allergy status to analgesic agent; Z88.1 Allergy status to other antibiotic agents; Z53.21 Procedure and treatment not carried out due to patient leaving prior to being seen by health care provider

== ENCOUNTER 2017-05-14 21:42 | Emergency (ER) | payer OTHER ==
[~2017-05-14] VITALS: Ht 157.4 cm; Wt 45.4 kg
[2017-05-15 00:04] LABS: BASO # 0.1 10*3/uL (0.0-0.1); BASO % 0.6 % (0.0-1.0); EOS # 0.1 10*3/uL (0.0-0.4); EOS % 0.9 % (1.0-4.0); HEMATOCRIT 36.1 % (37.0-47.0); HEMOGLOBIN 10.9 g/dl (12.0-16.0); LYMPH # 2.4 10*3/uL (1.3-4.4); LYMPH % 25.8 % (27.0-41.0); MEAN CELL VOLUME 77.1 fl (81.0-99.0); MEAN CORPUSCULAR HGB 23.3 pg (27.0-31.0); MEAN CORPUSCULAR HGB CONC 30.2 g/dl (33.0-37.0); MEAN PLATELET VOLUME 10.5 fl (9.6-12.3); MONO # 0.9 10*3/uL (0.1-1.0); MONO % 9.3 % (3.0-9.0); NEUT # 5.9 10*3/uL (2.3-7.9); NEUT % 63.3 % (47.0-73.0); PLATELET COUNT AUTOMATED 357 10*3/uL (130-400); RED BLOOD COUNT 4.68 10*6/uL (4.10-5.10); RED CELL DISTRI WIDTH 16.8 % (0-14.5); WHITE BLOOD COUNT 9.3 10*3/uL (4.8-10.8)
[2017-05-15 00:25] LABS: ALBUMIN 3.4 gm/dl (3.1-4.5); ALKALINE PHOSPHATASE 51 U/L (45-117); BUN 10 mg/dl (7-24); CHLORIDE 106 mmol/L (98-107); CREATININE 0.51 mg/dL (0.55-1.02); LIPASE 242 U/L (73-393); POTASSIUM 3.8 mmol/L (3.5-5.1); SGOT/AST 10 IU/L (3-35); SGPT/ALT 16 U/L (12-78); SODIUM 138 mmol/L (136-145); TOTAL PROTEIN 6.4 gm/dL (6.4-8.2)
[2017-05-15 00:27] LABS: ETHYL ALCOHOL < 3.0 mg/dl (<3)
[2017-05-15 00:32] LABS: BILIRUBIN NEGATIVE (NEGATIVE); BLOOD NEGATIVE (NEGATIVE); CLARITY CLOUDY (CLEAR); COLOR YELLOW (YELLOW); GLUCOSE NEGATIVE (NEGATIVE); KETONE NEGATIVE (NEGATIVE); LEUKO ESTERASE NEGATIVE (NEGATIVE); NITRITE NEGATIVE (NEGATIVE); PH 7.5 (5.0-9.0); SPECIFIC GRAVITY 1.015 (1.005-1.030); UROBILINOGEN 0.2 E.U./dl (0.2-1.0)
[2017-05-15 00:38] LABS: BACTERIA 1+; EPITHELIAL CELLS TNTC; RBC 0-2 rbc/hpf (0-2)
[2017-05-15] MEDS ORDERED: PROMETHAZI6.25 MG/3 PO (01:01)
== END 2017-05-15 00:42 | disposition home or self-care (01) ==
LOC: ED 21:42
PROVIDERS: Emergency Medicine Emergency Medical Services
DX: G43.A0 Cyclical vomiting, in migraine, not intractable (principal); F41.9 Anxiety disorder, unspecified; G89.29 Other chronic pain; Z79.899 Other long term (current) drug therapy; Z88.1 Allergy status to other antibiotic agents; Z88.5 Allergy status to narcotic agent

== ENCOUNTER 2017-05-22 01:44 | Inpatient (IN) | payer OTHER ==
[~2017-05-22] VITALS: Ht 157.5 cm; Wt 40.5 kg
[~2017-05-22 01:44] MED LIST changes: +PROMETHAZI6.25 MG/3 PO
[2017-05-22 01:47] VITALS: BP 145/99
[2017-05-22 02:38] LABS: BILIRUBIN NEGATIVE (NEGATIVE); BLOOD NEGATIVE (NEGATIVE); CLARITY SL CLOUDY (CLEAR); COLOR YELLOW (YELLOW); GLUCOSE NEGATIVE (NEGATIVE); KETONE 1+ (NEGATIVE); LEUKO ESTERASE TRACE (NEGATIVE); NITRITE NEGATIVE (NEGATIVE); PH 8.5 (5.0-9.0); SPECIFIC GRAVITY 1.015 (1.005-1.030); UROBILINOGEN 0.2 E.U./dl (0.2-1.0)
[2017-05-22 03:45] LABS: BASO # 0.1 10*3/uL (0.0-0.1); BASO % 0.9 % (0.0-1.0); EOS % 0.2 % (1.0-4.0); HEMATOCRIT 40.1 % (37.0-47.0); HEMOGLOBIN 12.4 g/dl (12.0-16.0); LYMPH # 1.6 10*3/uL (1.3-4.4); LYMPH % 16.8 % (27.0-41.0); MEAN CELL VOLUME 75.1 fl (81.0-99.0); MEAN CORPUSCULAR HGB 23.2 pg (27.0-31.0); MEAN CORPUSCULAR HGB CONC 30.9 g/dl (33.0-37.0); MEAN PLATELET VOLUME 10.3 fl (9.6-12.3); MONO # 0.7 10*3/uL (0.1-1.0); MONO % 7.6 % (3.0-9.0); NEUT # 7.1 10*3/uL (2.3-7.9); NEUT % 74.3 % (47.0-73.0); PLATELET COUNT AUTOMATED 350 10*3/uL (130-400); RED BLOOD COUNT 5.34 10*6/uL (4.10-5.10); RED CELL DISTRI WIDTH 17.2 % (0-14.5); WHITE BLOOD COUNT 9.6 10*3/uL (4.8-10.8)
[2017-05-22 03:59] LABS: ALBUMIN 4.1 gm/dl (3.1-4.5); ALKALINE PHOSPHATASE 56 U/L (45-117); BUN 13 mg/dl (7-24); CHLORIDE 103 mmol/L (98-107); CREATININE 0.58 mg/dL (0.55-1.02); LIPASE 154 U/L (73-393); POTASSIUM 3.4 mmol/L (3.5-5.1); SGOT/AST 13 IU/L (3-35); SGPT/ALT 19 U/L (12-78); SODIUM 141 mmol/L (136-145); TOTAL PROTEIN 7.6 gm/dL (6.4-8.2)
[2017-05-22 04:01] VITALS: BP 131/84
[2017-05-22 04:02] LABS: B-hCG (QUALITATIVE) NEGATIVE (NEGATIVE)
[2017-05-22 04:45] VITALS: BP 137/81
[2017-05-22 08:00] VITALS: BP 130/64
== END 2017-05-22 10:22 | disposition left against medical advice (07) | DRG 103 ==
LOC: ED 01:44 → EDHOLD 03:28 → 5E 03:44
PROVIDERS: Emergency Medicine Emergency Medical Services
PROC: 02HV33Z Insertion of Infusion Device into Superior Vena Cava, Percutaneous Approach (ICD-10-PCS; principal; 2017-05-22)
PROC: B548ZZA Ultrasonography of Superior Vena Cava, Guidance (ICD-10-PCS; 2017-05-22)
DX: G43.A0 Cyclical vomiting, in migraine, not intractable (principal); E83.41 Hypermagnesemia; Z68.1 Body mass index [BMI] 19.9 or less, adult; F41.9 Anxiety disorder, unspecified; J45.909 Unspecified asthma, uncomplicated; G89.29 Other chronic pain; M54.9 Dorsalgia, unspecified; G40.909 Epilepsy, unspecified, not intractable, without status epilepticus; G47.00 Insomnia, unspecified; E86.0 Dehydration; F60.3 Borderline personality disorder; R71.8 Other abnormality of red blood cells; D72.9 Disorder of white blood cells, unspecified; F17.200 Nicotine dependence, unspecified, uncomplicated; R63.6 Underweight; D72.810 Lymphocytopenia; E87.6 Hypokalemia; R73.9 Hyperglycemia, unspecified; F12.10 Cannabis abuse, uncomplicated; Z53.21 Procedure and treatment not carried out due to patient leaving prior to being seen by health care provider; Z93.1 Gastrostomy status; Z88.1 Allergy status to other antibiotic agents; Z76.5 Malingerer [conscious simulation]; Z72.89 Other problems related to lifestyle; Z86.711 Personal history of pulmonary embolism; Z79.01 Long term (current) use of anticoagulants; Z93.4 Other artificial openings of gastrointestinal tract status; Z71.6 Tobacco abuse counseling; Z81.1 Family history of alcohol abuse and dependence; Z79.899 Other long term (current) drug therapy; Z83.3 Family history of diabetes mellitus; Z82.0 Family history of epilepsy and other diseases of the nervous system; Z83.6 Family history of other diseases of the respiratory system; Z81.8 Family history of other mental and behavioral disorders; Z88.8 Allergy status to other drugs, medicaments and biological substances

== ENCOUNTER 2017-07-28 15:59 | Emergency (ER) | payer OTHER ==
[~2017-07-28] VITALS: Wt 39.5 kg
[2017-07-28 18:12] LABS: HEMATOCRIT 31.9 % (37.0-47.0); HEMOGLOBIN 10.2 g/dl (12.0-16.0); MEAN CELL VOLUME 80.6 fl (81.0-99.0); MEAN CORPUSCULAR HGB 25.8 pg (27.0-31.0); MEAN PLATELET VOLUME 9.9 fl (9.6-12.3); PLATELET COUNT AUTOMATED 273 10*3/uL (130-400); RED BLOOD COUNT 3.96 10*6/uL (4.10-5.10); RED CELL DISTRI WIDTH 17.5 % (0-14.5); WHITE BLOOD COUNT 10.3 10*3/uL (4.8-10.8)
[2017-07-28 18:25] LABS: ALBUMIN 2.9 gm/dl (3.1-4.5); ALKALINE PHOSPHATASE 44 U/L (45-117); BUN 8 mg/dl (7-24); CHLORIDE 106 mmol/L (98-107); CREATININE 0.46 mg/dL (0.55-1.02); LIPASE 271 U/L (73-393); POTASSIUM 3.6 mmol/L (3.5-5.1); SGOT/AST 13 IU/L (3-35); SGPT/ALT 18 U/L (12-78); SODIUM 139 mmol/L (136-145); TOTAL PROTEIN 6.4 gm/dL (6.4-8.2)
== END 2017-07-28 20:22 | disposition home or self-care (01) ==
LOC: ED 15:59
PROVIDERS: Physician Assistant
DX: G43.A0 Cyclical vomiting, in migraine, not intractable (principal); R10.12 Left upper quadrant pain; F17.200 Nicotine dependence, unspecified, uncomplicated; Z93.1 Gastrostomy status; Z79.899 Other long term (current) drug therapy; Z88.8 Allergy status to other drugs, medicaments and biological substances; Z88.1 Allergy status to other antibiotic agents; Z88.6 Allergy status to analgesic agent

== ENCOUNTER 2017-08-02 21:12 | Emergency (ER) | payer OTHER ==
[~2017-08-02] VITALS: Ht 157.4 cm; Wt 45.4 kg
== END 2017-08-02 21:34 | disposition left against medical advice (07) ==
LOC: ED 21:12
DX: R11.0 Nausea (principal); R10.12 Left upper quadrant pain; F17.200 Nicotine dependence, unspecified, uncomplicated; Z76.5 Malingerer [conscious simulation]; Z79.899 Other long term (current) drug therapy; Z88.1 Allergy status to other antibiotic agents; Z88.8 Allergy status to other drugs, medicaments and biological substances; Z88.6 Allergy status to analgesic agent

== ENCOUNTER 2017-08-26 20:54 | Emergency (ER) | payer OTHER ==
[~2017-08-26] VITALS: Wt 45.4 kg
[2017-08-26 23:20] LABS: BASO % 0.2 % (0.0-1.0); EOS % 0.2 % (1.0-4.0); HEMATOCRIT 32.3 % (37.0-47.0); HEMOGLOBIN 10.4 g/dl (12.0-16.0); LYMPH # 1.6 10*3/uL (1.3-4.4); LYMPH % 16.6 % (27.0-41.0); MEAN CELL VOLUME 83.9 fl (81.0-99.0); MEAN CORPUSCULAR HGB CONC 32.2 g/dl (33.0-37.0); MEAN PLATELET VOLUME 10.4 fl (9.6-12.3); MONO % 10.6 % (3.0-9.0); NEUT # 6.7 10*3/uL (2.3-7.9); NEUT % 72.1 % (47.0-73.0); PLATELET COUNT AUTOMATED 230 10*3/uL (130-400); RED BLOOD COUNT 3.85 10*6/uL (4.10-5.10); RED CELL DISTRI WIDTH 16.1 % (0-14.5); WHITE BLOOD COUNT 9.3 10*3/uL (4.8-10.8)
[2017-08-26 23:29] LABS: INTERNATIONAL NORM RATIO 0.9 (2.0-3.5)
[2017-08-26 23:37] LABS: ALBUMIN 2.8 gm/dl (3.1-4.5); BUN 10 mg/dl (7-24); CHLORIDE 108 mmol/L (98-107); CREATININE 0.39 mg/dL (0.55-1.02); LIPASE 187 U/L (73-393); POTASSIUM 3.4 mmol/L (3.5-5.1); SGOT/AST 11 IU/L (3-35); SGPT/ALT 13 U/L (12-78); SODIUM 139 mmol/L (136-145)
[2017-08-26 23:38] LABS: ALKALINE PHOSPHATASE 35 U/L (45-117); TOTAL PROTEIN 6.1 gm/dL (6.4-8.2)
[2017-08-26 23:52] LABS: B-hCG (QUALITATIVE) POSITIVE (NEGATIVE)
[2017-08-27 00:14] LABS: BILIRUBIN NEGATIVE (NEGATIVE); BLOOD NEGATIVE (NEGATIVE); CLARITY SL CLOUDY (CLEAR); COLOR YELLOW (YELLOW); GLUCOSE NEGATIVE (NEGATIVE); KETONE NEGATIVE (NEGATIVE); LEUKO ESTERASE NEGATIVE (NEGATIVE); NITRITE NEGATIVE (NEGATIVE); PH >= 9.0 (5.0-9.0); SPECIFIC GRAVITY <= 1.005 (1.005-1.030); UROBILINOGEN 0.2 E.U./dl (0.2-1.0)
[2017-08-27 01:00] LABS: BACTERIA TRACE; TRIP PHOS CRYSTALS 2+
[2017-08-27 01:01] LABS: WBC 0-2 wbc/hpf (0-5)
== END 2017-08-27 04:25 | disposition short-term general hospital (02) ==
LOC: ED 20:54
PROVIDERS: Emergency Medicine Emergency Medical Services
DX: K94.29 Other complications of gastrostomy (principal); G89.29 Other chronic pain; R11.2 Nausea with vomiting, unspecified; K31.84 Gastroparesis; F17.200 Nicotine dependence, unspecified, uncomplicated; Z88.6 Allergy status to analgesic agent; Z88.8 Allergy status to other drugs, medicaments and biological substances; Z88.1 Allergy status to other antibiotic agents; Z79.899 Other long term (current) drug therapy

== ENCOUNTER 2018-01-14 17:22 | Emergency (ER) | payer OTHER ==
[~2018-01-14] VITALS: Ht 157.4 cm; Wt 47.2 kg
[2018-01-14 18:16] LABS: ALBUMIN 4.4 gm/dl (3.1-4.5); ALKALINE PHOSPHATASE 75 U/L (45-117); BUN 11 mg/dl (7-24); CHLORIDE 105 mmol/L (98-107); POTASSIUM 4.1 mmol/L (3.5-5.1); SGOT/AST 25 IU/L (3-35); SGPT/ALT 23 U/L (12-78); SODIUM 142 mmol/L (136-145); TOTAL PROTEIN 8.3 gm/dL (6.4-8.2)
[2018-01-14 18:20] LABS: LIPASE 91 U/L (73-393)
[2018-01-14 18:32] LABS: BASO % 0.3 % (0.0-1.0); EOS % 0.1 % (1.0-4.0); HEMATOCRIT 44.7 % (37.0-47.0); HEMOGLOBIN 14.5 g/dl (12.0-16.0); LYMPH # 1.4 10*3/uL (1.3-4.4); LYMPH % 10.4 % (27.0-41.0); MEAN CELL VOLUME 86.8 fl (81.0-99.0); MEAN CORPUSCULAR HGB 28.2 pg (27.0-31.0); MEAN CORPUSCULAR HGB CONC 32.4 g/dl (33.0-37.0); MEAN PLATELET VOLUME 10.8 fl (9.6-12.3); MONO % 7.3 % (3.0-9.0); NEUT # 11.3 10*3/uL (2.3-7.9); NEUT % 81.5 % (47.0-73.0); PLATELET COUNT AUTOMATED 277 10*3/uL (130-400); RED BLOOD COUNT 5.15 10*6/uL (4.10-5.10); RED CELL DISTRI WIDTH 13.5 % (0-14.5); WHITE BLOOD COUNT 13.8 10*3/uL (4.8-10.8)
[2018-01-14 18:53] LABS: BILIRUBIN 1+ (NEGATIVE); BLOOD NEGATIVE (NEGATIVE); CLARITY SL CLOUDY (CLEAR); COLOR YELLOW (YELLOW); GLUCOSE NEGATIVE (NEGATIVE); KETONE 1+ (NEGATIVE); LEUKO ESTERASE NEGATIVE (NEGATIVE); NITRITE NEGATIVE (NEGATIVE); PH 7.5 (5.0-9.0); UROBILINOGEN 0.2 E.U./dl (0.2-1.0)
[2018-01-14 19:08] LABS: MUCOUS 1+
== END 2018-01-14 20:02 | disposition home or self-care (01) ==
LOC: ED 17:22
PROVIDERS: Nurse Practitioner Family
DX: R11.2 Nausea with vomiting, unspecified (principal); R03.0 Elevated blood-pressure reading, without diagnosis of hypertension; R10.30 Lower abdominal pain, unspecified; J45.909 Unspecified asthma, uncomplicated; G89.29 Other chronic pain; F17.200 Nicotine dependence, unspecified, uncomplicated; Z93.1 Gastrostomy status; Z86.711 Personal history of pulmonary embolism; Z88.8 Allergy status to other drugs, medicaments and biological substances; Z88.6 Allergy status to analgesic agent; Z88.1 Allergy status to other antibiotic agents; Z79.899 Other long term (current) drug therapy

== ENCOUNTER 2018-07-11 22:22 | Emergency (ER) | payer OTHER ==
[~2018-07-11] VITALS: Ht 157.4 cm; Wt 40.8 kg
[~2018-07-11 22:22] MED LIST changes: +ULTRAM50 MG PO
== END 2018-07-11 23:44 | disposition left against medical advice (07) ==
LOC: ED 22:22
DX: R07.89 Other chest pain (principal); R10.13 Epigastric pain; G89.4 Chronic pain syndrome; G40.909 Epilepsy, unspecified, not intractable, without status epilepticus; F12.10 Cannabis abuse, uncomplicated; F17.200 Nicotine dependence, unspecified, uncomplicated; Z98.890 Other specified postprocedural states; Z86.711 Personal history of pulmonary embolism; Z79.899 Other long term (current) drug therapy; Z88.8 Allergy status to other drugs, medicaments and biological substances; Z88.6 Allergy status to analgesic agent; Z88.1 Allergy status to other antibiotic agents

== ENCOUNTER 2018-09-16 16:01 | Inpatient (IN) | payer OTHER ==
[~2018-09-16] VITALS: Ht 157.4 cm; Wt 39.5 kg
--- NOTE | ~2018-09-16 | EKG ---
[place], [place] ELECTROCARDIOGRAM REPORT NAME: MEAGHAN FLORES UNIT #: [id number] ROOM: 409 DOCTOR: MANJINDER DRAFT REPORT BIRTHDATE: [birth year] [facility] Test Date: 2018-09-16 Test Time: 17:19:08 Pat Name: MEAGHAN FLORES Department: Room: 409 1 Gender: F Independent Consultant: Sanjuana Ashraf : 1990 Requested By: POONAM CHENG Order Number: [id number] Reading MD: Michael Swanson Measurements Intervals [place] Rate: 73 P: 69 WI: 145 QRS: 77 QRSD: 92 T: 61 QT: 381 QTc: 420 Interpretive Statements Sinus rhythm RSR' in V1 or V2, probably normal variant Probable left ventricular hypertrophy ST elevation suggests acute pericarditis Compared to ECG 07/11/2018 22:41:34 RSR' in V1 or V2 now present ST (T wave) deviation now present Atrial abnormality no longer present Myocardial infarct finding no longer present Electronically Signed On 09-18-2018 8:52:25 PDT by Michael Swanson CM:EKGRPT:ELECTROCARDIOGRAM REPORT 1719 [id number] POONAM QUIJANO DRAFT REPORT POONAM CHENG DO
[2018-09-16 16:04] VITALS: BP 124/80
[2018-09-16 16:55] LABS: URINE AMPHETAMINES < 1000 (1000ng/ml); URINE BARBITURATES < 200 (200ng/ml); URINE BENZODIAZEPINES < 200 (200ng/ml); URINE CANNABINOIDS (THC) < 50 (50ng/ml); URINE COCAINE > 300 (300ng/ml); URINE METHADONE < 300 (300ng/ml); URINE OPIATES < 300 (300ng/ml)
[2018-09-16 16:56] LABS: URINE PHENCYCLIDINE < 25 (25ng/ml)
[2018-09-16 17:42] LABS: BASO % 0.4 % (0.0-1.0); EOS % 0.4 % (1.0-4.0); HEMATOCRIT 38.7 % (37.0-47.0); HEMOGLOBIN 12.1 g/dl (12.0-16.0); LYMPH # 1.9 10*3/uL (1.3-4.4); LYMPH % 26.4 % (27.0-41.0); MEAN CELL VOLUME 80.6 fl (81.0-99.0); MEAN CORPUSCULAR HGB 25.2 pg (27.0-31.0); MEAN CORPUSCULAR HGB CONC 31.3 g/dl (33.0-37.0); MEAN PLATELET VOLUME 9.6 fl (9.6-12.3); MONO # 0.5 10*3/uL (0.1-1.0); MONO % 7.3 % (3.0-9.0); NEUT # 4.6 10*3/uL (2.3-7.9); NEUT % 65.2 % (47.0-73.0); PLATELET COUNT AUTOMATED 324 10*3/uL (130-400); RED CELL DISTRI WIDTH 16.3 % (0-14.5)
[2018-09-16 17:45] VITALS: BP 136/87
[2018-09-16 17:57] LABS: ALBUMIN 3.6 gm/dl (3.1-4.5); ALKALINE PHOSPHATASE 61 U/L (45-117); BUN 13 mg/dl (7-24); CHLORIDE 107 mmol/L (98-107); CREATININE 0.57 mg/dL (0.55-1.02); POTASSIUM 4.2 mmol/L (3.5-5.1); SGOT/AST 8 IU/L (3-35); SGPT/ALT 21 U/L (12-78); SODIUM 138 mmol/L (136-145); TOTAL PROTEIN 7.5 gm/dL (6.4-8.2)
[2018-09-16 17:58] LABS: ETHYL ALCOHOL < 3.0 mg/dl (<3)
[2018-09-16 20:00] VITALS: BP 140/80
[2018-09-17] VITALS: BP 150/80
[2018-09-17 04:00] VITALS: BP 143/80
[2018-09-17 08:00] VITALS: BP 141/98
[2018-09-17 12:00] VITALS: BP 145/74
[2018-09-17 12:47] LABS: BILIRUBIN NEGATIVE (NEGATIVE); BLOOD NEGATIVE (NEGATIVE); CLARITY SL CLOUDY (CLEAR); COLOR YELLOW (YELLOW); GLUCOSE NEGATIVE (NEGATIVE); KETONE NEGATIVE (NEGATIVE); LEUKO ESTERASE NEGATIVE (NEGATIVE); NITRITE NEGATIVE (NEGATIVE); UROBILINOGEN 0.2 E.U./dl (0.2-1.0)
[2018-09-17 12:59] LABS: BACTERIA TRACE
[2018-09-17 16:00] VITALS: BP 137/86
[2018-09-17 20:00] VITALS: BP 116/66
[2018-09-18] VITALS: BP 122/72
[2018-09-18 08:00] VITALS: BP 110/58
[2018-09-18 16:00] VITALS: BP 121/71
[2018-09-19] VITALS: BP 136/82
[2018-09-19 08:00] VITALS: BP 108/61
[2018-09-19] MEDS ORDERED: METHOCARBAMOL750 M1 PO (12:05)
[2018-09-19] MEDS ORDERED: REQUIP0.5 MG PO (12:05)
== END 2018-09-19 14:00 | disposition home or self-care (01) | DRG 896 ==
LOC: ED 16:01 → 4E 16:37 → EDHOLD 16:37 → 4E 16:55
PROVIDERS: Internal Medicine; Physician Assistant; ADMIT Family Medicine
DX: F11.23 Opioid dependence with withdrawal (principal); E43 Unspecified severe protein-calorie malnutrition; Z68.1 Body mass index [BMI] 19.9 or less, adult; F17.210 Nicotine dependence, cigarettes, uncomplicated; R10.9 Unspecified abdominal pain; F19.10 Other psychoactive substance abuse, uncomplicated; M79.10 Myalgia, unspecified site; F41.9 Anxiety disorder, unspecified; J45.909 Unspecified asthma, uncomplicated; G89.29 Other chronic pain; G40.909 Epilepsy, unspecified, not intractable, without status epilepticus; G47.00 Insomnia, unspecified; K31.84 Gastroparesis; Z88.8 Allergy status to other drugs, medicaments and biological substances; Z79.899 Other long term (current) drug therapy; Z93.1 Gastrostomy status; Z83.3 Family history of diabetes mellitus; Z82.5 Family history of asthma and other chronic lower respiratory diseases; Z82.0 Family history of epilepsy and other diseases of the nervous system; Z81.8 Family history of other mental and behavioral disorders; Z84.89 Family history of other specified conditions; Z80.8 Family history of malignant neoplasm of other organs or systems; Z86.711 Personal history of pulmonary embolism

== ENCOUNTER 2018-09-21 11:50 | Emergency (ER) | payer OTHER ==
[~2018-09-21] VITALS: Ht 157.4 cm; Wt 40.8 kg
[~2018-09-21 11:50] MED LIST changes: +METHOCARBAMOL750 M1 PO; +REQUIP0.5 MG PO
[2018-09-21 12:30] LABS: BILIRUBIN NEGATIVE (NEGATIVE); BLOOD NEGATIVE (NEGATIVE); CLARITY CLOUDY (CLEAR); COLOR YELLOW (YELLOW); GLUCOSE NEGATIVE (NEGATIVE); KETONE NEGATIVE (NEGATIVE); LEUKO ESTERASE NEGATIVE (NEGATIVE); NITRITE NEGATIVE (NEGATIVE); PH 8.5 (5.0-9.0); UROBILINOGEN 0.2 E.U./dl (0.2-1.0)
[2018-09-21 12:54] LABS: BACTERIA 2+; EPITHELIAL CELLS 0-2; WBC 0-2 wbc/hpf (0-5)
== END 2018-09-21 14:26 | disposition left against medical advice (07) ==
LOC: ED 11:50
PROVIDERS: Nurse Practitioner Family
DX: R10.9 Unspecified abdominal pain (principal); R50.9 Fever, unspecified; R11.2 Nausea with vomiting, unspecified; F17.200 Nicotine dependence, unspecified, uncomplicated; Z88.8 Allergy status to other drugs, medicaments and biological substances; Z88.1 Allergy status to other antibiotic agents; Z88.6 Allergy status to analgesic agent; Z79.899 Other long term (current) drug therapy

== ENCOUNTER 2020-07-02 10:17 | Emergency (ER) | payer OTHER ==
[~2020-07-02] VITALS: Ht 157.4 cm; Wt 44.5 kg
[2020-07-02 12:09] LABS: BASO # 0.1 10*3/uL (0.0-0.1); BASO % 0.6 % (0.0-1.0); EOS # 0.1 10*3/uL (0.0-0.4); EOS % 0.8 % (1.0-4.0); HEMATOCRIT 45.5 % (37.0-47.0); LYMPH # 2.1 10*3/uL (1.3-4.4); LYMPH % 26.9 % (27.0-41.0); MEAN CELL VOLUME 84.3 fl (81.0-99.0); MEAN CORPUSCULAR HGB 26.9 pg (27.0-31.0); MEAN CORPUSCULAR HGB CONC 31.9 g/dl (33.0-37.0); MEAN PLATELET VOLUME 10.3 fl (9.6-12.3); MONO % 12.7 % (3.0-9.0); NEUT # 4.6 10*3/uL (2.3-7.9); NEUT % 58.7 % (47.0-73.0); PLATELET COUNT AUTOMATED 273 10*3/uL (130-400); RED CELL DISTRI WIDTH 14.3 % (0-14.5); WHITE BLOOD COUNT 7.9 10*3/uL (4.8-10.8)
[2020-07-02 12:25] LABS: ALBUMIN 3.3 gm/dl (3.1-4.5); ALKALINE PHOSPHATASE 83 U/L (45-117); BUN 9 mg/dl (7-24); CHLORIDE 109 mmol/L (98-107); CREATININE 0.62 mg/dL (0.55-1.02); SGOT/AST 70 IU/L (3-35); SGPT/ALT 170 U/L (12-78); SODIUM 135 mmol/L (136-145); TOTAL PROTEIN 7.1 gm/dL (6.4-8.2)
[2020-07-02 12:34] LABS: LIPASE 438 U/L (73-393)
[2020-07-02 12:35] LABS: BETA-HCG, QUANT < 1.0 mIU/mL (1-3)
[2020-07-02 13:04] LABS: BILIRUBIN Negative (Negative); BLOOD Negative (Negative); CLARITY Clear (Clear); COLOR Yellow (Yellow); GLUCOSE Negative (Negative); KETONE Negative (Negative); LEUKO ESTERASE 1+ (Negative); NITRITE Positive (Negative); SPECIFIC GRAVITY 1.015 (1.001-1.030)
[2020-07-02 13:11] LABS: BACTERIA 3+
[2020-07-02] MEDS ORDERED: PHENERGAN25 M3 PO (14:24)
[2020-07-02] MEDS ORDERED: DOXYCYCLINE100 M3 PO (14:24)
[2020-07-02] MEDS ORDERED: ASMANEX HFA13 G1 INH (14:24)
[2020-07-02] MEDS ORDERED: ROBITUSSIN DM 101 OZ PO (14:28)
== END 2020-07-02 14:30 | disposition home or self-care (01) ==
LOC: ED 10:17
PROVIDERS: Emergency Medicine
DX: J20.9 Acute bronchitis, unspecified (principal); Z79.899 Other long term (current) drug therapy; N39.0 Urinary tract infection, site not specified; Z98.890 Other specified postprocedural states

== ENCOUNTER 2020-08-04 09:53 | Emergency (ER) | payer OTHER ==
[~2020-08-04 09:53] MED LIST changes: +ASMANEX HFA13 G1 INH; +DOXYCYCLINE100 M3 PO; +PHENERGAN25 M3 PO; +ROBITUSSIN DM 101 OZ PO
[2020-08-04 10:35] LABS: BILIRUBIN 1+ (Negative); BLOOD Trace-Lysed (Negative); CLARITY Cloudy (Clear); COLOR Dark Yellow (Yellow); GLUCOSE Negative (Negative); KETONE Trace (Negative); LEUKO ESTERASE 1+ (Negative); NITRITE Positive (Negative); PH 5.5 (4.5-8.0); SPECIFIC GRAVITY >= 1.030 (1.001-1.030)
[2020-08-04 10:36] LABS: BASO # 0.1 10*3/uL (0.0-0.1); BASO % 0.7 % (0.0-1.0); EOS # 0.1 10*3/uL (0.0-0.4); HEMATOCRIT 44.3 % (37.0-47.0); LYMPH # 2.1 10*3/uL (1.3-4.4); LYMPH % 29.4 % (27.0-41.0); MEAN CORPUSCULAR HGB 27.3 pg (27.0-31.0); MEAN CORPUSCULAR HGB CONC 31.4 g/dl (33.0-37.0); MONO # 0.7 10*3/uL (0.1-1.0); MONO % 9.2 % (3.0-9.0); NEUT # 4.2 10*3/uL (2.3-7.9); NEUT % 59.6 % (47.0-73.0); PLATELET COUNT AUTOMATED 284 10*3/uL (130-400); RED BLOOD COUNT 5.09 10*6/uL (4.10-5.10); RED CELL DISTRI WIDTH 14.6 % (0-14.5)
[2020-08-04 10:42] LABS: BACTERIA 4+; EPITHELIAL CELLS 21-30; WBC 51-100 wbc/hpf (0-5)
[2020-08-04 10:50] LABS: URINE AMPHETAMINES > 1000 (1000ng/ml); URINE BARBITURATES < 200 (200ng/ml); URINE BENZODIAZEPINES < 200 (200ng/ml); URINE CANNABINOIDS (THC) < 50 (50ng/ml); URINE COCAINE < 300 (300ng/ml); URINE METHADONE < 300 (300ng/ml); URINE OPIATES < 300 (300ng/ml)
[2020-08-04 10:51] LABS: URINE PHENCYCLIDINE < 25 (25ng/ml)
[2020-08-04 10:53] LABS: ALBUMIN 3.7 gm/dl (3.1-4.5); ALKALINE PHOSPHATASE 68 U/L (45-117); BUN 13 mg/dl (7-24); CHLORIDE 110 mmol/L (98-107); CREATININE 0.62 mg/dL (0.55-1.02); POTASSIUM 3.7 mmol/L (3.5-5.1); SGOT/AST 87 IU/L (3-35); SGPT/ALT 169 U/L (12-78); SODIUM 139 mmol/L (136-145); TOTAL PROTEIN 7.5 gm/dL (6.4-8.2)
[2020-08-04 10:56] LABS: ETHYL ALCOHOL < 3.0 mg/dl (<3)
[2020-08-04] MEDS ORDERED: MACROBID100 M1 PO (10:59)
== END 2020-08-04 11:05 | disposition home or self-care (01) ==
LOC: ED 09:53
PROVIDERS: Emergency Medicine
DX: F15.10 Other stimulant abuse, uncomplicated (principal); R20.2 Paresthesia of skin; F22 Delusional disorders; N39.0 Urinary tract infection, site not specified; F12.10 Cannabis abuse, uncomplicated; G89.4 Chronic pain syndrome; F41.9 Anxiety disorder, unspecified; Z88.8 Allergy status to other drugs, medicaments and biological substances; Z88.1 Allergy status to other antibiotic agents; Z88.6 Allergy status to analgesic agent

== ENCOUNTER 2021-11-07 04:56 | Emergency (ER) | payer OTHER ==
[~2021-11-07 04:56] MED LIST changes: +MACROBID100 M1 PO
== END 2021-11-07 05:04 ==
LOC: ED 04:56
DX: Z13.89 Encounter for screening for other disorder (principal); F39 Unspecified mood [affective] disorder; Z87.891 Personal history of nicotine dependence; Z98.890 Other specified postprocedural states; Z88.1 Allergy status to other antibiotic agents; Z88.8 Allergy status to other drugs, medicaments and biological substances

== ENCOUNTER 2021-11-19 21:16 | Emergency (ER) | payer OTHER ==
[~2021-11-19] VITALS: Ht 157.4 cm; Wt 46.3 kg
[2021-11-19 21:54] LABS: BILIRUBIN Negative (Negative); BLOOD Negative (Negative); CLARITY Cloudy (Clear); COLOR Yellow (Yellow); GLUCOSE Negative (Negative); KETONE Trace (Negative); LEUKO ESTERASE 1+ (Negative); NITRITE Negative (Negative); PH 5.5 (4.5-8.0); SPECIFIC GRAVITY 1.025 (1.001-1.030)
[2021-11-19 22:12] LABS: BACTERIA 2+; WBC 16-20 wbc/hpf (0-5)
== END 2021-11-19 22:40 | disposition left against medical advice (07) ==
LOC: ED 21:16
PROVIDERS: Internal Medicine
DX: U07.1 COVID-19 (principal); N39.0 Urinary tract infection, site not specified; F17.200 Nicotine dependence, unspecified, uncomplicated; Z88.8 Allergy status to other drugs, medicaments and biological substances; Z88.6 Allergy status to analgesic agent; Z88.1 Allergy status to other antibiotic agents; Z98.890 Other specified postprocedural states; Z53.29 Procedure and treatment not carried out because of patient's decision for other reasons

== ENCOUNTER 2024-04-25 14:07 | Emergency (ER) | payer OTHER ==
[~2024-04-25] VITALS: Ht 157.4 cm; Wt 59.0 kg
[2024-04-25] MEDS ORDERED: Phenergan25 MG PO (15:01)
[2024-04-25] MEDS ORDERED: Promethazine Hydrochloride 25 MG/ML VIAL IM ONE (15:35)
[2024-04-25] MEDS ORDERED: SODIUM CHLORIDE 0.9% 1,000 ML IV ONE (15:35)
[2024-04-25 16:16] LABS: BILIRUBIN Negative (Negative); BLOOD Negative (Negative); CLARITY Cloudy (Clear); COLOR Yellow (Yellow); GLUCOSE Negative (Negative); KETONE Trace (Negative); LEUKO ESTERASE Trace (Negative); NITRITE Negative (Negative); PH 5.5 (4.5-8.0); SPECIFIC GRAVITY 1.025 (1.001-1.030); UROBILINOGEN 0.2 E.U./dl (0.0-1.0)
[2024-04-25 16:22] LABS: BACTERIA TRACE; MUCOUS 3+
[2024-04-25 16:23] LABS: EPITHELIAL CELLS 16-20
[2024-04-25 17:06] LABS: BASO % 0.3 % (0.0-1.0); EOS # 0.1 10*3/uL (0.0-0.4); EOS % 0.9 % (1.0-4.0); HEMATOCRIT 40.1 % (37.0-47.0); MEAN CELL VOLUME 88.1 fl (81.0-99.0); MEAN CORPUSCULAR HGB CONC 32.9 g/dl (33.0-37.0); MONO # 0.7 10*3/uL (0.1-1.0); MONO % 7.1 % (3.0-9.0); NEUT # 7.3 10*3/uL (2.3-7.9); NEUT % 72.3 % (47.0-73.0); PLATELET COUNT AUTOMATED 259 10*3/uL (130-400); RED BLOOD COUNT 4.55 10*6/uL (4.10-5.10); RED CELL DISTRI WIDTH 12.3 % (0-14.5); WHITE BLOOD COUNT 10.1 10*3/uL (4.8-10.8)
[2024-04-25 17:30] LABS: ALKALINE PHOSPHATASE 48 U/L (46-116); BUN 8 mg/dl (9-23); CHLORIDE 100 mmol/L (98-107); LIPASE 25 U/L (12-53); POTASSIUM 3.8 mmol/L (3.4-5.1); SGPT/ALT 8 U/L (5-49); TOTAL PROTEIN 6.9 gm/dL (6.0-8.0)
[2024-04-25] MEDS ORDERED: Lidocaine Hydrochloride 2% 10 ML AMP SC ONE (18:40)
[2024-04-25] MEDS ORDERED: CEPHALEXIN500 M1 PO (19:16)
[2024-04-25] MEDS ORDERED: Ondansetron4 MG PO (19:16)
[2024-04-25] MEDS ORDERED: CEPHALEXIN 500 MG CAP PO ONE (19:20)
== END 2024-04-25 19:53 | disposition home or self-care (01) ==
LOC: ED 14:07
PROVIDERS: Nurse Practitioner Family
DX: O21.9 Vomiting of pregnancy, unspecified (principal); O99.719 Diseases of the skin and subcutaneous tissue complicating pregnancy, unspecified trimester; L02.415 Cutaneous abscess of right lower limb; J45.909 Unspecified asthma, uncomplicated; F41.9 Anxiety disorder, unspecified; F11.20 Opioid dependence, uncomplicated; F17.200 Nicotine dependence, unspecified, uncomplicated; Z79.899 Other long term (current) drug therapy; Z3A.00 Weeks of gestation of pregnancy not specified; Z88.6 Allergy status to analgesic agent; Z88.1 Allergy status to other antibiotic agents; Z88.8 Allergy status to other drugs, medicaments and biological substances; Z98.890 Other specified postprocedural states